=== PATIENT | female | born 1960 | race Caucasian/White ===

== ENCOUNTER 2019-06-04 16:59 | Emergency (ER) | payer BC, SELFPAY ==
[2019-06-04 17:00] VITALS: BP 167/98; PULSE 71; RESP 16; TEMP 36.8; O2SAT 98; BMI 42.0
--- NOTE | 2019-06-04 17:16 | RAD_ITS ---
STUDY: X-RAY CHEST REASON FOR EXAM: Female, 58 years old. Chest pain after trauma TECHNIQUE: Single AP portable view of the chest. COMPARISON: None. FINDINGS: EKG leads overlie the chest The lungs are clear and expanded. There is no demonstrated pleural abnormality. Normal size heart. Normal mediastinum and winter. Normal visualized pulmonary arteries. Normal visualized aortic arch and descending thoracic aorta. Normal visualized thoracic spine. Normal visualized ribs, clavicles, and shoulders. There is no demonstrated abnormality of the visualized soft tissue structures of the upper abdomen. RAD/Chest 1 View (Portable) IMPRESSION: No acute pulmonary process Electronically Signed: [place] José MD at 18:12 EST , Service support ,
--- NOTE | 2019-06-04 17:16 | EKG12_ITS ---
Test Reason : REPEAT EKG Blood Pressure : / mmHG Vent. Rate : 060 BPM Atrial Rate : 060 BPM P-R Int : 134 ms QRS Dur : 070 ms QT Int : 484 ms P-R-T Axes : 038 003 042 degrees QTc Int : 484 ms Normal sinus rhythm Prolonged QT Abnormal ECG Confirmed by JOSE DUMONT, TONO ([id number]), international editorial producer RIGOBERTO LYNN ([id number]) on 06/06/2019 1:37:22 PM Referred By: ISRA Confirmed By:TONO GARCIA MD
--- NOTE | 2019-06-04 17:16 | ED.VIS.GEN ---
History of Present Illness Chief Complaint: Chest Pain Informant: Patient Onset: Today Context: Gradual Onset Timing: Waxes and wanes Current Severity: Mild Maximum Severity: Moderate Narrative: Patient presents with a soreness or pressure sensation across her chest that started around 1:00 this afternoon. She had some intermittent pain into the left side the neck as well. She denies shortness of breath. She had a mild chronic cough. She denies breaking out a sweat. Symptoms are not necessarily worsened with activity. She has not noticed recent activity intolerance. She states she had a stress test but is been several years ago. She states both of her parents had heart problems. Her son-in-law also from a sudden cardiac event. - Past Medical History (1) Hypothyroid Status: Chronic (2) GERD (gastroesophageal reflux disease) Status: Chronic Past Medical History - Allergies and Home Meds Allergies/Adverse Reactions: Allergies morphine Allergy (Verified 06/04/19 18:12) Rash Primary Care Physician: Angel Goode DO [Primary Care Provider] - Prior records reviewed: Yes Smoking Status: Former smoker Review of Systems General: Denies: Chills, Fever Eyes: Denies: Visual changes - bilaterally ENT: Denies: Bilateral ear pain Cardiovascular: Reports: Chest pain. Denies: Palpitations, Heart racing Respiratory: Reports: Cough - Chronic, mild cough. Denies: Dyspnea Gastrointestinal: Denies: Abdominal pain, Nausea, Vomiting, Diarrhea Genitourinary: Denies: Dysuria Musculoskeletal: Denies: Back pain, Swelling, Extremity Pain Skin: Denies: Rash Neurological: Denies: Headache Hematologic: Denies: Easy bruising, Easy bleeding Allergy: Denies: Uticaria Physical Exam Vital Signs/Narrative: Vital Signs Temp Pulse Resp BP Pulse Ox 06/04/19 17:00 98.2 F 71 16 167/98 H 98 Inital Vital Signs reviewed: Yes General: Well nourished, Well developed Head: Normocephalic ENT: Moist mucous membranes Neck: Supple Cardiovascular: Regular rate, Regular rhythm Respiratory: No distress, CTA bilaterally, Chest tenderness - Reproducible chest tenderness along the left sternal border. Abdomen: Soft, Nontender Back: Nontender Extremities: Nontender Skin: Normal color, No rash Neurological: Alert, Normal Strength, Normal Sensation Psychological: Normal affect Diagnostic/Tx/Re-eval Impressions Chest X-Ray 06/04/19 17:16 IMPRESSION: No acute pulmonary process Electronically Signed: [place] José MD at 18:12 EST , Service support , 06/04/19 17:16 Chest 1 View (Portable) [RAD] Stat Laboratory Results 06/04/19 06/04/19 06/04/19 17:00 17:00 19:55 WBC 8.1 RBC 4.87 Hgb 13.5 Hct 42.0 MCV 86.2 MCH 27.7 MCHC 32.1 RDW Std Deviation 41.2 RDW Coeff of Jatinder 13.3 Plt Count 230 MPV 10.3 Immature Gran % (Auto) 0.400 Neut % (Auto) 66.8 Lymph % (Auto) 23.8 [place] % (Auto) 5.9 Eos % (Auto) 2.6 Baso % (Auto) 0.5 Absolute Neuts (auto) 5.4 Absolute Lymphs (auto) 1.92 Nucleated RBC % 0 Sodium 141 Potassium 3.5 Chloride 107 Carbon Dioxide 28.0 Anion Gap 6 BUN 19 H Creatinine 1.03 H Estim Creat Clear Calc 55.73 Est GFR (MDRD) Af Amer 71 Est GFR (MDRD) Non-Af 58 L BUN/Creatinine Ratio 18.4 Glucose 92 Calcium 9.3 Troponin I < 0.015 < 0.015 - EKG Initial EKG Interpretation: Sinus Rhythm - Sinus at 73 with no acute ischemia. Follow-up EKG Interpretation: Sinus Rhythm - Sinus at 60 with no acute ischemia. - Medical Decision Making Patient was given aspirin on arrival. On repeat evaluation she is resting comfortably. We discussed possibility of admission for cycling of cardiac enzymes and stress test versus close outpatient follow-up. She did agree to stay for 3-hour repeat test which is unremarkable. At this time patient will be discharged home. I will speak with her PCP or whoever is covering to help arrange close follow-up. If her symptoms worsen in any way she will return for repeat evaluation. ED Disposition - Plan for ED Patient: Disposition: Home or Assisted Living Diagnosis: Chest pain Instructions: CHEST PAIN, Uncertain Cause Referrals: Angel Goode, [Primary Care Provider] - As soon as possible
[2019-06-04 17:38] LABS: Anion Gap 6 (5-15); BUN 19 mg/dL (7-18); BUN/Creat Ratio 18.4 RATIO (10-20); Calcium,Total 9.3 mg/dL (8.5-10.1); Chloride 107 mmol/L (98-107); Creatinine, Serum 1.03 mg/dL (0.55-1.02); EST Glomerular Filtration Rate 58 mL/min (>60); Est Glom Filt Rate - Afr Amer 71 mL/min (>60); Estimated Creatinine Clearance 55.73 ml/min; Glucose 92 mg/dL (74-106); Potassium 3.5 mmol/L (3.5-5.1); Sodium Level 141 mmol/L (136-145)
[2019-06-04 17:39] LABS: Absolute Lymphocyte Count 1.92 X10^3/uL (0.83-4.51); Absolute Neutrophil Count 5.4 X10^3/uL (2.0-7.7); Basophil# 0.04 X10^3/uL; Basophil% 0.5 % (0-1); Eosinophil# 0.21 X10^3/uL; Eosinophils% 2.6 % (0-5); Hemoglobin 13.5 g/dL (12.0-15.0); Lymphocyte # 1.92 X10^3/ul (4.0); Lymphocyte % 23.8 % (19-41); Mean Corp Hgb Conc 32.1 g/dL (32-36); Mean Corpuscular Hgb 27.7 pg (27.0-32.0); Mean Corpuscular Volume 86.2 fL (81-99); Mean Platelet Vol. 10.3 fl (6.2-12.0); Monocyte# 0.48 X10^3/uL; Monocyte% 5.9 % (0-10); NRBC Flagged by Analyzer 0 % (0-5); Neutrophil # 5.39 X10^3/uL (2.7-7.7); Neutrophil % 66.8 % (47-70); Platelet Count 230 K/mm3 (150-450); RBC Distribution Width CV 13.3 % (11.6-14.6); RBC Distribution Width SD 41.2 fl (35.1-43.9); Red Blood Count 4.87 M/mm3 (4.2-5.4); White Blood Count 8.1 K/mm3 (4.4-11.0)
[2019-06-04] MEDS: Aspirin 81 MG TAB.CHEW 243 MG PO (18:08)
[2019-06-04 18:09] VITALS: BP 147/79; PULSE 67; RESP 17; O2SAT 100; O2SAT 99
[2019-06-04 19:00] VITALS: BP 116/74; PULSE 68; RESP 15; O2SAT 98
--- NOTE | 2019-06-04 20:00 | EKG12_ITS ---
Test Reason : CP Blood Pressure : / mmHG Vent. Rate : 073 BPM Atrial Rate : 073 BPM P-R Int : 148 ms QRS Dur : 070 ms QT Int : 432 ms P-R-T Axes : 039 -07 038 degrees QTc Int : 475 ms Normal sinus rhythm Normal ECG Confirmed by JOSE DUMONT, TONO ([id number]), production editor RIGOBERTO LYNN ([id number]) on 06/06/2019 1:37:44 PM Referred By: SIRIA/JACOBO Confirmed By:TONO GARCIA MD
[2019-06-04 20:10] VITALS: BP 125/62; PULSE 67; O2SAT 94
[2019-06-04 20:42] VITALS: BP 104/53; PULSE 63; RESP 15; O2SAT 94
== END 2019-06-04 20:42 | disposition home or self-care (01) ==
PROVIDERS: Emergency Provider Emergency Medicine; PCP Student in an Organized Health Care Education/Training Program
DX: R07.9 Chest pain, unspecified (principal); E03.9 Hypothyroidism, unspecified; K21.9 Gastro-esophageal reflux disease without esophagitis; Z79.82 Long term (current) use of aspirin; Z87.891 Personal history of nicotine dependence; Z82.49 Family history of ischemic heart disease and other diseases of the circulatory system
CPT/HCPCS: 36415; 71045; 80048; 84484; 85025; 93005; 99285

== ENCOUNTER 2024-03-26 14:01 | Emergency (ER) | payer OTHER, SELFPAY ==
[2024-03-26 14:02] VITALS: BP 181/99; PULSE 82; RESP 16; TEMP 36.3; O2SAT 98; BMI 42.3
--- NOTE | 2024-03-26 14:13 | EKG12_ITS ---
Test Reason : CP Blood Pressure : */* mmHG Vent. Rate : 79 BPM Atrial Rate : 79 BPM P-R Int : 150 ms QRS Dur : 72 ms QT Int : 412 ms P-R-T Axes : 43 -10 52 degrees QTcB Int : 472 ms Normal sinus rhythm Normal ECG Confirmed by REAL DUMONT, GALINA ([id number]), acquisitions editor CHEYANNE MONROY ([id number]) on 03/29/2024 2:22:54 PM Referred By: FRANCE/BELTRAN Confirmed By: GALINA NOBLE MD
--- NOTE | 2024-03-26 14:19 | ED.VIS.CHEST ---
HPI History of Present Illness Chief Complaint: Chest Other Informant: patient Onset/Context/Timing Onset: Days and Weeks Activity at onset: gradual Timing: Continuous Quality: Positive for Pain and Sharp Location: Left Chest Current Severity: Mild Maximum Severity: Mild Worsened By: Movement of Torso and Coughing Relieved By: Nothing Associated Symptoms: Positive for Cough; Negative for Nausea, Vomiting, Diaphoresis, Dyspnea, Fever, Lightheadedness or Acid Reflux Narrative Narrative: 63-year-old female history of [id number] diabetes. She has never had a DVT or PE. No significant risk factors. States about 3 weeks ago she was putting a puzzle lost a piece of the left upper recliner and when she lifted it she felt pain in her left chest feeling that she strained her left chest wall. In the last couple weeks she has had URI symptoms. Was seen in urgent care today. On antibiotic. I did not do a chest x-ray or any viral testing. She says she basically been having chest discomfort for a week. Worse with movement of her chest. Denies any hemoptysis. No history of DVT or PE. No recent travel surgery or immobilization. No recent hospitalization. No calf pain or swelling. Prior Similar Symptoms: No Recent Illness/Hospitalization: No CVD Risk Factors: Positive for Diabetes PE Risk Factors: Negative for Recent Travel/Surgery, Recent Immobilization, Prior DVT or PE, Cancer or OCP + Smoking + >/=35 TAD Risk Factors: Negative for Marfan's Syndrome [facility] Medical History (Updated 03/26/24 @ 15:[address] Sunil Kendrick MD) Diabetes Home Medications ?Medication ?Instructions ?Recorded ?Last Taken ?Type bupropion HCl 100 mg tablet 100 mg PO DAILY 08/08/15 Unknown History cholecalciferol (vitamin D3) 25 1,000 unit PO DAILY 08/08/15 Unknown History mcg (1,000 unit) tablet (Vitamin D3) levothyroxine 137 mcg tablet 137 mcg PO DAILY 08/08/15 Unknown History aspirin 81 mg chewable tablet 81 mg PO DAILY@0800 06/04/19 Unknown History fluoxetine 10 mg capsule 10 mg PO DAILY 06/04/19 Unknown History omeprazole magnesium 20 mg 20 mg PO DAILY 06/04/19 Unknown History tablet,delayed release vitamin B complex 1 ea PO DAILY 06/04/19 Unknown History Allergy/AdvReac Type Severity Reaction Status Date / Time morphine Allergy Rash Verified 03/26/24 14:05 Social History Smoking Status: Never smoker ROS ROS ED ROS Narrative Cough. Left chest pain is consistent with chest wall pain. Constitutional Constitutional ED: Denies chills or fever(s) Eyes Eyes: Reports none ENT ENT ED: Denies ear pain Cardiovascular Cardiovascular: Reports as per HPI and chest pain; Denies palpitations or racing heartbeat Respiratory/Chest Respiratory/Chest: Reports cough; Denies dyspnea Gastrointestinal Gastrointestinal: Denies abdominal pain, constipation, diarrhea, melena, nausea or vomiting Genitourinary Genitourinary ED: Denies dysuria or hematuria Musculoskeletal Musculoskeletal: Denies arthralgias or back pain Integumentary Denies abscess or Abrasions Neurologic Neurologic: Denies headache(s) or paresthesias Psychiatric Psychiatric: Denies anxiety or depression Endocrine Endocrinology: Denies cold intolerance, heat intolerance or polydipsia Hematologic/Lymphatic Hematologic/Lymphatic: Denies easy bleeding or easy bruising Allergic/Immunologic Allergic/Immunologic ED: Denies mouth swelling, tongue swelling or urticaria EXAM Physical Exam Narrative Exam Narrative: 63-year-old female vital signs are stable afebrile. Pulse ox 98% on room air no signs hypoxia. H EENT exam unremarkable. Moist mucous membranes. No facial droop. Normal speech. No trouble swallowing or breathing. Neck nontender no lymphadenopathy. Lungs clear to auscultation bilaterally. Heart regular rate and rhythm no murmur. Chest wall she has reproducible chest wall pain on her left mid chest. There is no ecchymosis or bruising. No subcu air or crepitus. The chest wall looks normal. Right chest wall nontender. Ribs nontender. Abdomen soft, nontender, nondistended, normal bowel sounds without peritoneal signs. Patient moving all 4 extremities. 5 out of 5 internet architect strength. Dorsi plantarflexion intact. Equal and symmetrical radial pulses. Calves are nontender without edema or cords. Back nontender. Neurologically she is awake and alert no focal motor deficits. Const Vital Signs: 03/26/24 14:02 03/26/24 14:30 03/26/24 14:30 Temperature 97.4 F L Temperature Source Oral Pulse Rate 82 Respiratory Rate 16 Respiratory Effort Normal Non-Labored Blood Pressure 181/99 H Blood Pressure Mean 126 Pulse Ox 98 Oxygen Delivery Method Room Air Room Air 03/26/24 15:00 Temperature Temperature Source Pulse Rate 75 Respiratory Rate 16 Respiratory Effort Blood Pressure Blood Pressure Mean Pulse Ox 95 Oxygen Delivery Method Positive well nourished and well developed; Negative for cachectic, contractures or unkempt General Appearance ED: well developed and NAD; Negative for unkempt, cachectic, contractures or pallor Nutritional Appearance: Negative for cachectic HEENT Reports moist mucous membranes normocephalic and atraumatic; Negative for trauma or tenderness Eyes PERRL and EOMs intact bilaterally General Eye ED: Negative for pale conjunctiva or scleral icterus Neck no lymphadenopathy, supple and no JVD Chest Wall inspection of chest normal; Negative for palpation of chest normal Chest Narrative: Left chest wall reproducible discomfort. Nothing abnormal on visualization of the chest wall. Chest: tenderness Resp normal respiratory effort and clear to auscultation bilaterally Effort and Inspection: Negative for respiratory distress Auscultation: Negative for rales, rhonchi, wheezes or diminished lung sounds Cardio regular rate, regular rhythm, S1 normal heart sound, S2 normal heart sound and no murmurs Peripheral Pulses: pulses 2+ throughout GI normal to inspection, nondistended, normoactive bowel sounds, soft to palpation, non-tender, non-distended and no masses Back/Spine no CVA tenderness and no thoracic nor lumbar tenderness General Back: Negative for CVA tenderness Cervical Spine: Negative for cervical spine tenderness Extremity normal to inspection General Extremety ED: Negative for edema, pulses abnormal or tenderness General Extremity: Negative for edema or pulses abnormal Neuro oriented x3 and CN's II-XII intact bilaterally Sensorium / Orientation: awake, alert, oriented to person, oriented to place and oriented to time; Negative for confused, lethargic or stuporous Motor Exam: strength 5/5 throughout; Negative for general weakness Psych mental status grossly normal Appearance: Negative for unkempt Attitude: No agitated Mood & Affect: Negative for depressed, anxious or tearful Skin no rashes or lesions noted and no wounds General Skin Exam: Negative for jaundice or pallor Rashes: No rashes noted Trauma: Negative for abrasion, laceration or puncture Heart Score History: Slightly/Non-Suspicious ECG: Normal Age: >/= 65 years Risk Factors: 1 or 2 Risk Factors Troponin: </= Normal Limit Score: 3 MDM MDM MDM Narrative Medical decision making narrative: 63-year-old diabetic female with URI suspect viral. Chest pain is reproducible that I suspect is secondary to chest wall strain from lifting her recliner and her cough. She undergo a cardiac workup and is always that is negative she will be discharged home. Repeat exam patient is doing well at 3:38 PM. Her cardiac workup was negative. Her chest x-ray showed no signs of pneumonia or acute process. Repeat exam she is doing well. We discussed all of her test results. She is comfortable being discharged home. History & Record Review Discussion w/independent historian: Patient Lab Data Attestation: I reviewed the patient's lab results. Lab results narrative: CBC shows a white count of 6. H&H 12 and 39. Platelets 260. Chemistries unremarkable gap 6. BUN is 16 creatinine 1. Glucose 131. Troponin 4. Labs: Laboratory Results - last 24 hr 03/26/24 14:20 WBC 6.9 RBC 4.81 Hgb 12.0 Hct 39.0 MCV 81.1 MCH 24.9 L MCHC 30.8 L RDW Std Deviation 44.6 H RDW Coeff of Jatinder 15.3 H Plt Count 260 MPV 9.8 Immature Gran % (Auto) 0.400 Neut % (Auto) 67.3 Lymph % (Auto) 23.3 [place] % (Auto) 5.2 Eos % (Auto) 3.2 Baso % (Auto) 0.6 Absolute Neuts (auto) 4.7 Absolute Lymphs (auto) 1.62 Nucleated RBC % 0 Sodium 140 Potassium 3.8 Chloride 107 Carbon Dioxide 27.0 Anion Gap 6 BUN 16 Creatinine 1.06 H Estim Creat Clear Calc 71.34 Est GFR (MDRD) Af Amer 67 Est GFR (MDRD) Non-Af 56 L BUN/Creatinine Ratio 15.1 Glucose 131 H Calcium 9.3 Troponin I High Sens 4 Radiography Chest X-Ray - ED: 2 View, Read by ED Physician, Heart, Lungs, Mediastinum, Bony Structures, No Acute Disease and Chronic Changes Diagnostic Testing: Clinical Impression(s) from Imaging Studies Chest X-Ray 03/26/24 14:30 IMPRESSION: No acute cardiopulmonary process identified. Electronically Signed: Marium See MD at 15:03 EST , Chest x-ray, 2 views, interpreted by myself shows no acute abnormality.Normal cardiac silhouette. Normal lung griffin. Rhythm Strip Rhythm Strip: Sinus Rhythm Rate: 79 Ectopy: None EKG Initial EKG: Attestation: I personally reviewed and interpreted this EKG as follows: Interpretation: Sinus Rhythm and No Acute Injury Pattern Comments: Normal sinus rhythm rate of 79 no acute signs of AL or ischemia. Discharge Plan Triage Chief Complaint: Chest Other ED Provider: Sunil Kendrick Dx/Rx/DC Orders Clinical Impression: Chest wall muscle strain, Chest pain, History of diabetes mellitus Instructions: ED Chest Wall Strain Prescriptions: No Action levothyroxine 137 MCG tablet 137 mcg PO DAILY bupropion HCl 100 MG tablet 100 mg PO DAILY cholecalciferol (vitamin D3) [Vitamin D3] 1,000 UNIT tablet 1,000 unit PO DAILY fluoxetine 10 mg capsule 10 mg PO DAILY Patient Comments: TAKE 1 CAPSULE BY MOUTH ONCE DAILY aspirin 81 MG tablet,chewable 81 mg PO DAILY@0800 vitamin B complex 1 EACH capsule 1 ea PO DAILY omeprazole magnesium 20 MG tablet,delayed release (DR/EC) 20 mg PO DAILY Primary Care Provider: Angel Goode Referrals: Angel Goode DO [Primary Care Provider] - As Needed Activity Restrictions/Additional Instructions: Pain is secondary to straining your chest wall. Ice to your chest wall. Motrin for pain and inflammation and Tylenol for pain. This should progressively improve. No heavy lifting until your chest wall is pain-free. Follow-up with your doctor if not proving. Your labs, EKG and chest x-ray were all unremarkable today. Print Language: Sami Disposition Disposition: Home, Self Care
--- NOTE | 2024-03-26 14:30 | RAD_ITS ---
HISTORY: chest pain. TECHNIQUE: XR Chest 2 Views. COMPARISON: 06/04/2019. FINDINGS: CARDIOMEDIASTINAL BORDERS: Cardiac silhouette within normal limits in size. Mediastinal contour unremarkable. LUNGS: Radiographically clear. PLEURA: No pleural effusion or pneumothorax seen. OSSEOUS STRUCTURES: Unremarkable. RAD/Chest PA and Lateral IMPRESSION: No acute cardiopulmonary process identified. Electronically Signed: Marium See MD at 15:03 EST ,
[2024-03-26 14:32] LABS: Absolute Lymphocyte Count 1.62 X10^3/uL (0.83-4.51); Absolute Neutrophil Count 4.7 X10^3/uL (2.0-7.7); Basophil# 0.04 X10^3/uL; Basophil% 0.6 % (0-1); Eosinophil# 0.22 X10^3/uL; Eosinophils% 3.2 % (0-5); Lymphocyte # 1.62 X10^3/ul (0.83-4.51); Lymphocyte % 23.3 % (19-41); Mean Corp Hgb Conc 30.8 g/dL (32-36); Mean Corpuscular Hgb 24.9 pg (27.0-32.0); Mean Corpuscular Volume 81.1 fL (81-99); Mean Platelet Vol. 9.8 fl (6.2-12.0); Monocyte# 0.36 X10^3/uL; Monocyte% 5.2 % (0-10); NRBC Flagged by Analyzer 0 % (0-5); Neutrophil # 4.67 X10^3/uL (2.7-7.7); Neutrophil % 67.3 % (47-70); Platelet Count 260 K/mm3 (150-450); RBC Distribution Width CV 15.3 % (11.6-14.6); RBC Distribution Width SD 44.6 fl (35.1-43.9); Red Blood Count 4.81 M/mm3 (4.2-5.4); White Blood Count 6.9 K/mm3 (4.4-11.0)
[2024-03-26 15:00] VITALS: PULSE 75; RESP 16; O2SAT 95
[2024-03-26 15:00] LABS: Anion Gap 6 (5-15); BUN 16 mg/dL (7-18); BUN/Creat Ratio 15.1 RATIO (10-20); Calcium,Total 9.3 mg/dL (8.5-10.1); Chloride 107 mmol/L (98-107); Creatinine, Serum 1.06 mg/dL (0.55-1.02); EST Glomerular Filtration Rate 56 mL/min (>60); Est Glom Filt Rate - Afr Amer 67 mL/min (>60); Estimated Creatinine Clearance 71.34 ml/min; Glucose 131 mg/dL (74-106); Potassium 3.8 mmol/L (3.5-5.1); Sodium Level 140 mmol/L (136-145); Troponin-I HS 4 pg/mL (3.0-54.0)
[2024-03-26 15:46] VITALS: PULSE 72; RESP 14; O2SAT 95
== END 2024-03-26 15:47 | disposition home or self-care (01) ==
PROVIDERS: Emergency Provider Emergency Medicine; PCP Student in an Organized Health Care Education/Training Program; Visit Provider Emergency Medicine
DX: S29.011A Strain of muscle and tendon of front wall of thorax, initial encounter (principal); E11.9 Type 2 diabetes mellitus without complications; X50.0XXA Overexertion from strenuous movement or load, initial encounter
CPT/HCPCS: 71046; 80048; 84484; 85025; 93005; 99283